=== PATIENT | female | born 1950 | race Caucasian/White ===

== ENCOUNTER 2017-01-22 10:27 | Inpatient (IN) | payer OTHER, MEDICARE ==
--- NOTE | 2017-01-22 10:38 | PDOC ---
History of Present Illness <Ana Carreno - Last Filed: 01/22/17 10:48> <Ramonita Thorpe - Last Filed: 01/22/17 11:01> - General Chief Complaint: CVA/TIA Stated Complaint: POSS STROKE Time Seen by Provider: 01/22/17 10:38 Past History <Ana Carreno - Last Filed: 01/22/17 10:48> - Past Medical History Hypercholesterolemia: Yes - Suicide/Smoking/Psychosocial Hx Smoking History: Never smoked Have you smoked in the past 12 months: No Hx Alcohol Use: No Drug/Substance Use Hx: No Substance Use Type: None <Ramonita Thorpe - Last Filed: 01/22/17 11:01> - Past Medical History Allergies/Adverse Reactions: Allergies Allergy/AdvReac Type Severity Reaction Status Date / Time No Known Allergies Allergy Verified 01/22/17 10:50 Home Medications: Ambulatory Orders Atorvastatin Ca [Lipitor] 10 mg PO HS 06/22/15 Alendronate Sodium [Binosto] 0 mg PO WEEKLY #0 06/24/15 Aspirin [Aspirin EC] 81 mg PO DAILY #1 tablet. 06/24/15 Gabapentin [Neurontin] 100 mg PO HS #30 capsule 06/25/15 NIH Stroke Scale - Last Known Well Date/Time & Onset Date Last Known Well: 01/22/17 Time Last Known Well: 09:00 <Ramonita Thorpe - Last Filed: 01/22/17 11:01> Critical Care Time/MDM Note - Medical Decision Making Note: 01/22/17 10:35-- Efrain Morton called in ED. 01/22/17 10:38-- Dr. Brownlee consulted. 01/22/17 10:48 --Dr. Pricila light (analytical consultant for Chris Martinez, Pt's neurologist) and patient's case was discussed. <Ana Carreno - Last Filed: 01/22/17 10:48>
[2017-01-22 10:50] VITALS: BMI 27.3
--- NOTE | 2017-01-22 11:02 | PDOC ---
Attending Attestation - Resident Resident Name: Vashti Chester - ED Attending Attestation I have performed the following: I have examined & evaluated the patient, The case was reviewed & discussed with the resident, I agree w/resident's findings & plan, Exceptions are as noted - HPI HPI: 01/22/17 11:19 see other note - Physicial Exam PE: 01/22/17 11:19 see other note - Medical Decision Making 01/22/17 11:02 I, Dr. Ramonita Thorpe, DO, attest that this document has been prepared under my direction and personally reviewed by me in its entirety. I further attest, that it accurately reflects all work, treatment, procedures and medical decision -making performed by me. 01/22/17 11:12 a/p: 66yo female with confusion, weakness coming from eye doctor -concern for CVA vs TIA -labs, head ct, ekg, cxr, ua -discussed case with DR. Brownlee who recommends also ordering carotid dopplers -will discuss with DR. Martinez (pts neurologist) -will need admission -onset of 9am, but no localizing symptoms other than slurred speech and confusion. b/l arm and leg weakness. no sensory changes. 01/22/17 11:18 Heart Score/ECG Review - ECG Intrepretation Comment:: 01/22/17 11:09 sinus at 63, nl axis, nl interval, no acute st/t wave findings NIH Stroke Scale - Last Known Well Date/Time & Onset Date Last Known Well: 01/22/17 Time Last Known Well: 09:00 - Initial Evaluation Level of consciousness: Alert Ask patient the month and their age: Answers both correctly Ask patient to open & close eyes; make fist and let go: Obeys both correctly Best gaze (horizontal eye movement): Normal Visual field testing: No visual field loss Facial paresis (Show teeth/raise eyebrows/close eyes tight): Normal symmetrical movement Motor Function: Left Arm: Some effort against gravity Motor Function: Right Arm: Some effort against gravity Motor Function: Left Leg: Some effort against gravity Motor Function: Right Leg: Some effort against gravity Limb Ataxia: No ataxia Sensory(Use pinprick test arms,legs,trunk,face/side to side): Normal Best language (Describe picture, name items, read sentences): Mild to moderate aphasia Dysarthria (read several words): Mild to moderate slurring of words Extinction and Inattention: No abnormality - Total Score NIH Stroke Scale Score: 10 tPA Exclusion Checklist 0-3hr - Time Elapsed Date last known well: 01/22/17 Time last known well: 09:00 Elaspsed time: Day(s) and 2 Hour(s) and 18 Minutes - Thrombolytic Therapy Candidate Is the patient eligible for Thrombolytic Therapy?: Yes - Exclusion Criteria 0-3hr SBP greater than 185 or DBP greater than 110mmHg despite tx: No Recent IC/spinal surgery,head trauma or stroke w/in last 3mo: No Hx of previous IC hemorrhage, IC neoplasm, AVM or aneurysm: No Active internal bleeding: No Blding diathesis(low plt ct, inc PTT,INR>1.7 or use of NOAC): No Symptoms suggest subarachnoid hemorrhage: No CT demonstrates multilobar infarct(>1/3 cerebral hemiphere): No Arterial puncture at noncompressible site in previous 7 days: No Blood glucose concentration less than 50mg/dL (2.7mmol/L): No - Relative Exclusion Criteria 0-3h Life expectancy <1yr/severe co-morbid illness/TAB BUILDER on admit: No : No Patient/family refused: No Rapid improvement: No Stroke severity too mild: No Recent acute GA (w/in previous 3 months): No Seizure at onset with postictal residual neuro impairments: No Major surgery or serious trauma w/in previous 14 days: No Recent GI or hemorrhage (w/in previous 21 days): No - Ineligibility reason(s) Reasons No tPA given: See reason(s) noted above (no localizing weakness to suggest cva, b/l UE and LE weakness, hx of seizures in the past and had multiple TIAs in the past- per outpt neurologist more concern for seizure activity than CVA)
[2017-01-22] MEDS: SODIUM CHLORIDE 1,000 ML IV SCH (11:05)
[2017-01-22 11:11] LABS: BASOPHIL 1.1 % (0-2.0); EOSINOPHIL 1.6 % (0-4.5); MCH 29.6 pg (25.7-33.7); MCHC 33.2 g/dl (32.0-36.0); MEAN CELL VOLUME 89.2 fl (80-96); MEAN PLT VOLUME 9.5 fl (7.5-11.1); NEUTROPHILS 66.3 % (42.8-82.8); PLATELET COUNT 189 K/MM3 (134-434); RDW 14.5 % (11.6-15.6); WHITE BLOOD COUNT 8.2 K/mm3 (4.0-10.0)
--- NOTE | 2017-01-22 11:24 | PDOC ---
History of Present Illness - General History Source: Patient Exam Limitations: No Limitations - History of Present Illness Initial Comments: 01/22/17 11:25 The patient is a 66 year old female, with a significant past medical history of Seizures, TIA, HLD who presents to the emergency department with sudden weakness , dizziness and confusion at 9AM this morning. 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 Daughter notes inability to walk, slurred speech and slight nausea. Patient was seen at nearby and was sent to the ED for further evaluation. Upon arrival, patient reports blurry vision with L occipital headache. Daughter notes this is her third episode within the past three days. These episodes last approximately 45 minutes with mild disorientation, mild body shakes and dizziness. Daughter reports today it has proggreisvely worsened. She also notes Note, patient had recent change in medication-- Donepezil to Keppra 500 mg BID. She denies chest pain, SOB, palpiations. She denies fever, chills, abdominal pain, vomit, diarrhea or constipation. She denies dysuria, frequency, urgency or hematuria. Patient denies sick contacts or recent travel. Allergies: NKA Past surgical history: Hysterectomy, Tonsillectomy Social history: None PCP: Dr. Concepción Mann Neurologist: Chris Martinez <Ana Carreno - Last Filed: 01/22/17 12:33> <Ramonita Thorpe - Last Filed: 01/22/17 12:44> - General Chief Complaint: CVA/TIA Stated Complaint: POSS STROKE Time Seen by Provider: 01/22/17 10:38 Past History <Ana Carreno - Last Filed: 01/22/17 12:33> - Past Medical History CVA: Yes (tia) COPD: No Hypercholesterolemia: Yes - Suicide/Smoking/Psychosocial Hx Smoking History: Never smoked Have you smoked in the past 12 months: No Information on smoking cessation initiated: No Hx Alcohol Use: No Drug/Substance Use Hx: No Substance Use Type: None <Ramonita Thorpe - Last Filed: 01/22/17 12:44> - Past Medical History Allergies/Adverse Reactions: Allergies Allergy/AdvReac Type Severity Reaction Status Date / Time No Known Allergies Allergy Verified 01/22/17 10:50 Home Medications: Ambulatory Orders Atorvastatin Ca [Lipitor] 10 mg PO HS 06/22/15 Aspirin [Aspirin EC] 81 mg PO DAILY #1 tablet. 06/24/15 Levetiracetam [Keppra -] 500 mg PO BID 01/22/17 Review of Systems - Review of Systems Able to Perform ROS?: Yes Comments:: 01/22/17 11:25 GENERAL/CONSTITUTIONAL: No fever or chills. +weakness. HEAD, EYES, EARS, NOSE AND THROAT: +blurry vision. No ear pain or discharge. No sore throat. GASTROINTESTINAL: No nausea, vomiting, diarrhea or constipation. GENITOURINARY: No dysuria, frequency, or change in urination. CARDIOVASCULAR: No chest pain or shortness of breath. RESPIRATORY: No cough, wheezing, or hemoptysis. MUSCULOSKELETAL: No joint or muscle swelling or pain. No neck or back pain. SKIN: No rash NEUROLOGIC: No headache, vertigo, loss of consciousness, or change in strength/ sensation. ENDOCRINE: No increased thirst. No abnormal weight change. HEMATOLOGIC/LYMPHATIC: No anemia, easy bleeding, or history of blood clots. ALLERGIC/IMMUNOLOGIC: No hives or skin allergy. <Ana Carreon - Last Filed: 01/22/17 12:33> *Physical Exam - Vital Signs Last Vital Signs Temp Pulse Resp BP Pulse Ox 97.6 F 62 18 145/103 100 01/22/17 10:27 01/22/17 10:27 01/22/17 10:27 01/22/17 10:27 01/22/17 10:27 - Physical Exam Comments: 01/22/17 11:25 GENERAL: Awake, alert, and fully oriented, in no acute distress. HEAD: No signs of trauma EYES: PERRLA, EOMI, sclera anicteric, conjunctiva clear ENT: Auricles normal inspection, hearing grossly normal, nares patent, oropharynx clear without exudates. Moist mucosa NECK: Normal ROM, supple, no lymphadenopathy, JVD, or masses LUNGS: Breath sounds equal, clear to auscultation bilaterally. No wheezes, and no crackles HEART: Regular rate and rhythm, normal S1 and S2, no murmurs, rubs or gallops ABDOMEN: Soft, nontender, normoactive bowel sounds. No guarding, no rebound. No masses EXTREMITIES: Normal range of motion, no edema. No clubbing or cyanosis. No cords, erythema, or tenderness. +generalized weakness in all extremities. NEUROLOGICAL: Cranial nerves II through XII grossly intact. +Mild to moderate aphasia. +Mild to mod slurred speech. +Stroke scale 10 with no localizing symptoms. +Bilateral upper extremity and lower extremity weakness. SKIN: Warm, Dry, normal turgor, no rashes or lesions noted. 01/22/17 11:26 Documentation prepared by Ana Carreno, acting as medical coding manager for Ramonita Thorpe DO, MD/. <Ana Carreno - Last Filed: 01/22/17 12:33> - Vital Signs Last Vital Signs Temp Pulse Resp BP Pulse Ox 97.6 F 62 18 145/103 100 01/22/17 10:27 01/22/17 10:27 01/22/17 10:27 01/22/17 10:27 01/22/17 10:27 <Ramonita Thorpe - Last Filed: 01/22/17 12:44> Critical Care Time/MDM Note Total Critical Care Time: 30 Critical Care Statement: The care of this patient involved high complexity decision making to prevent further life threatening deterioration of the patient 's condition and/or to evaluate & treat vital organ system(s) failure or risk of failure. - Medical Decision Making Note: 01/22/17 12:[address] Chris Martinez's office Note from last visit with Dr. Chris Martinez on 01/17/2017: " Problem #1: ? SEIZURE, SINLGE (ICD-780.39) (ICD 10- R56.9) Pt had a clearly observed and described (Nazanin) seizure. This is at least the third in the last year and a half. At this point I am recommending we start anticonvulsants. I have sent in a script for Keppra 500 mg BID and we will fu in two more months. No real change on aricept so we are going to stop it. Her updated medication list for this problem includes Keppra 500mg tabs, BID. " Documentation prepared by Ana Carreno, acting as medical coding manager for Ramonita Thorpe DO, MD/. <Ana Carreno - Last Filed: 01/22/17 12:33> - Medical Decision Making Note: 01/22/17 11:19 01/22/17 11:12 a/p: 66yo female with confusion, weakness coming from eye doctor -concern for CVA vs TIA -labs, head ct, ekg, cxr, ua -discussed case with DR. Brownlee who recommends also ordering carotid dopplers -will discuss with DR. Martinez (pts neurologist) -will need admission -onset of 9am, but no localizing symptoms other than slurred speech and confusion. b/l arm and leg weakness. no sensory changes. case discussed with Dr. Vaughan- states per Dr. Martinez's last note, pt has hx of seizures instead of tia. Has had negative neuro workup for cva and tia in the past. started on keppra on 01/17 and stopped donazepil then for seizure activity - concerned today's activity was seizure activity and not tia/cva given no localizing symptoms pt with b/l arm and leg weakness. has slurred speech, but no sensory changes. has mild confusion - has happened with prior seizures in the past. per the daughter, her mother has had tia episodes exactly the same as today - get dizzy, generally weak and needs support in the past. has had eye fluttering in the past with symptoms. has been shaking in the past and was shaking walking down the [place] today. no loss of bowel or bladder control. no tongue biting. symptoms today similar to prior tia episodes - has had 45 min of similar symptoms the last 4 mornings where the patient acted this way without loc and resolved in 45 min 01/22/17 12:[address] Brownlee who recommends increasing keppra dose to 750mg BID and giving an extra 500mg today. also to send Keppra level today. 01/22/17 12:28 01/22/17 12:[address] Mistry who accepts pt to service. Family and patient updated on results. willing to stay for further eval. 01/22/17 12:44 I, Dr. Ramonita Thorpe, DO, attest that this document has been prepared under my direction and personally reviewed by me in its entirety. I further attest, that it accurately reflects all work, treatment, procedures and medical decision -making performed by me. <Ramonita Thorpe - Last Filed: 01/22/17 12:44> Discharge Disposition <Ana Carreno - Last Filed: 01/22/17 12:33> - Discharge Dispostion Admit: Yes <Ramonita Thorpe - Last Filed: 01/22/17 12:44> - Diagnosis Altered mental status, unspecified, Weakness - Discharge Dispostion Condition at time of disposition: Fair - Referrals Referrals: Concepción Mann MD [Primary Care Provider] -
[2017-01-22 11:29] LABS: INR 0.93 (0.82-1.09); PROTHROMBIN TIME (PATIENT) 10.5 SEC (9.98-11.88)
[2017-01-22 11:32] LABS: ACTIVATED PTT 29.9 SECONDS (26.9-34.4)
[2017-01-22 11:41] LABS: ANION GAP 13 (8-16); BILIRUBIN,TOTAL 0.8 mg/dL (0.2-1.0); CHOLESTEROL 212 mg/dL (50-200); CO2 20 mmol/L (21-32); CREATININE 0.8 mg/dL (0.55-1.02); GLUCOSE,RANDOM 78 mg/dL (74-106); SGOT/AST 21 U/L (15-37); SGPT/ALT 24 U/L (12-78); TOT PROT 7.3 g/dl (6.4-8.2)
[2017-01-22 11:42] LABS: ALK PHOS 84 U/L (45-117); CPK 60 IU/L (26-192); TROPONIN I < 0.02 ng/ml (0.00-0.05)
[2017-01-22] MEDS ORDERED: levETIRAcetam 500 MG/5 ML INJECTION VIAL IVPB ONE ×2 (12:15→13:08)
[2017-01-22] MEDS ORDERED: SODIUM CHLORIDE 0.9% 1000 ML INFUS.BAG IV ONE (12:15)
[2017-01-22 13:27] LABS: URINE APPEARANCE CLEAR; URINE BILIRUBIN NEGATIVE (NEGATIVE); URINE BLOOD 1+ (NEGATIVE); URINE COLOR STRAW; URINE GLUCOSE (UA) NEGATIVE (NEGATIVE); URINE KETONE 1+ (NEGATIVE); URINE NITRITE NEGATIVE (NEGATIVE); URINE PROTEIN NEGATIVE (NEGATIVE); URINE UROBILINOGEN NEGATIVE mg/dL (0.2-1.0)
[2017-01-22 13:35] LABS: URINE MUCUS RARE
--- NOTE | 2017-01-22 17:09 | HP ---
Admitting History and Physical - Primary Care Physician PCP: Jesus Mistyr - Admission History of Present Illness: 66 year old female, with a significant past medical history of Seizures, TIA, HLD who presents to the emergency department with sudden weakness, dizziness and confusion at 9AM this morning. Patient is accompanied by daughter who states the patient was at the [employer] office when she suddenly felt dizzy and was unable to walk. Daughter notes inability to walk, slurred speech and slight nausea. Patient was seen at nearby and was sent to the ED for further evaluation. Upon arrival, patient reports blurry vision with L occipital headache. Daughter notes this is her third episode within the past three days. These episodes last approximately 45 minutes with mild disorientation, mild body shakes and dizziness. Daughter reports today it has proggreisvely worsened. She also notes Note, patient had recent change in medication-- Donepezil to Keppra 500 mg BID. - Past Medical History LOAD OUT PERSON: Yes: Seizure, TIA Cardiovascular: Yes: Hyperlipdemia - Past Surgical History Past Surgical History: Yes: , Tonsillectomy - Smoking History Smoking history: Never smoked Have you smoked in the past 12 months: No - Alcohol/Substance Use Hx Alcohol Use: No History of Substance Use: reports: None - Social History ADL: Independent History of Recent Travel: No Home Medications - Allergies Allergies/Adverse Reactions: Allergies Allergy/AdvReac Type Severity Reaction Status Date / Time No Known Allergies Allergy Verified 01/22/17 10:50 - Home Medications Home Medications: Ambulatory Orders Atorvastatin Ca [Lipitor] 10 mg PO HS 06/22/15 Aspirin [Aspirin EC] 81 mg PO DAILY #1 tablet. 06/24/15 Levetiracetam [Keppra -] 500 mg PO BID 01/22/17 Levofloxacin [Levaquin] 500 mg PO DAILY #7 tablet 01/23/17 Physical Examination Vital Signs: Vital Signs Temperature 98.2 F 01/22/17 15:00 Pulse Rate 64 01/22/17 15:00 Respiratory Rate 18 01/22/17 15:00 Blood Pressure 124/72 01/22/17 15:00 O2 Sat by Pulse Oximetry (%) 100 01/22/17 14:09 Constitutional: Yes: No Distress HENT: Yes: Atraumatic Neck: Yes: Supple Cardiovascular: Yes: Regular Rate and Rhythm Respiratory: Yes: CTA Bilaterally Gastrointestinal: Yes: Normal Bowel Sounds Extremities: Yes: WNL Edema: No Peripheral Pulses WNL: Yes Neurological: Yes: Alert, Oriented ...Motor Strength: WNL Problem List - Problems (1) HLD (hyperlipidemia) Assessment/Plan: on meds Code(s): E78.5 - HYPERLIPIDEMIA, UNSPECIFIED (2) Tingling of left arm and left side of face Assessment/Plan: resolved Code(s): R20.2 - PARESTHESIA OF SKIN (3) UTI (urinary tract infection) Assessment/Plan: iv abx cx need to de drawn Code(s): N39.0 - URINARY TRACT INFECTION, SITE NOT SPECIFIED Assessment/Plan Laboratory Tests 01/22/17 01/22/17 01/22/17 10:30 11:04 11:04 WBC 8.2 RBC 5.47 H Hgb 16.2 H D Hct 48.8 H MCV 89.2 MCH 29.6 MCHC 33.2 RDW 14.5 Plt Count 189 MPV 9.5 Neutrophils % 66.3 Lymphocytes % 25.7 Monocytes % 5.3 Eosinophils % 1.6 Basophils % 1.1 PT with INR 10.50 INR 0.93 PTT (Actin FS) 29.9 Sodium Potassium Chloride Carbon Dioxide Anion Gap BUN Creatinine Creat Clearance w eGFR POC Glucometer [id number] Random Glucose Calcium Total Bilirubin AST ALT Alkaline Phosphatase Creatine Kinase Troponin I Total Protein Albumin Triglycerides Cholesterol Total LDL Cholesterol HDL Cholesterol Urine Color Urine Appearance Urine pH Ur Specific [place] Urine Protein Urine Glucose (UA) Urine Ketones Urine Blood Urine Nitrite Urine Bilirubin Urine Urobilinogen Urine RBC Urine WBC Ur Epithelial Cells Urine Mucus Blood Type Antibody Screen 01/22/17 01/22/17 01/22/17 11:04 11:04 11:04 WBC RBC Hgb Hct MCV MCH MCHC RDW Plt Count MPV Neutrophils % Lymphocytes % Monocytes % Eosinophils % Basophils % PT with INR INR PTT (Actin FS) Sodium 139 Potassium 3.9 Chloride 106 Carbon Dioxide 20 L D Anion Gap 13 BUN 15 D Creatinine 0.8 Creat Clearance w eGFR > 60 POC Glucometer Random Glucose 78 Calcium 10.0 Total Bilirubin 0.8 D AST 21 ALT 24 D Alkaline Phosphatase 84 D Creatine Kinase 60 Troponin I < 0.02 Total Protein 7.3 Albumin 4.0 Triglycerides 153 Cholesterol 212 H Total LDL Cholesterol 112 H HDL Cholesterol 75 H Urine Color Straw Urine Appearance Clear Urine pH 6.0 Ur Specific [place] 1.006 Urine Protein Negative Urine Glucose (UA) Negative Urine Ketones 1+ H Urine Blood 1+ H Urine Nitrite Negative Urine Bilirubin Negative Urine Urobilinogen Negative Urine RBC 2-5 Urine WBC 10-20 Ur Epithelial Cells Rare Urine Mucus Rare Blood Type O POSITIVE Antibody Screen Negative Active Medications Generic Name Dose Route Start Last Admin Trade Name Freq PRN Reason Stop Dose Admin Acetaminophen 650 mg 01/23/17 15:57 01/23/17 16:02 Tylenol - PO 650 mg Q6H PRN Administration FEVER OR PAIN Aspirin 81 mg 01/23/17 10:00 01/23/17 10:36 Ecotrin - PO 81 mg DAILY PRO Administration Atorvastatin Calcium 10 mg 01/22/17 22:00 01/23/17 21:45 Lipitor - PO 10 mg HS PRO Administration Levofloxacin 100 mls @ 100 mls/hr 01/22/17 21:45 01/24/17 10:07 Levaquin 500 Mg Premixed Ivpb - IVPB 100 mls/hr DAILY PRO Administration Levetiracetam 500 mg 01/22/17 22:00 01/23/17 21:45 Keppra - PO 500 mg BID PRO Administration Thiamine HCl 200 mg 01/22/17 22:00 01/24/17 14:41 Vitamin B1 Injection - IVPB 01/25/17 22:01 200 mg TID PRO Administration
--- NOTE | 2017-01-22 21:35 | CONSULT ---
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 Lives with her daughter and her family. Apparently Pt has a history of cognitive decline and notes, "Oh, yes, the memory is a big problem." She is has been followed by Dr. Chris Martinez [place]," and until recently was maintained on Donepezil. Recently she was switched to keppra, 500 BID for suspicion of seizure and Donepezil was D/C'ed as "it was ineffective, anyway." Now admitted after 3 days of recurrent complaints of dizziness and unsteadiness " lasting approx 45 mins and today occurring in [employer] Supervisor's office. CT of head (reviewed): Mild diffuse atrophy. Carotid duplex dopplers: Unremarkable Pt also had MRI of brain in June, here, also revealing moderate, diffuse atrophy without focal changes. Admission labs sig for Urine with 20 WBC's. AIYANA: Neck supple. No bruits. Cor reg. NEURO: Awake, alert, confused. Rapid, fluent speech. Follows most commands. + Glabellar, shout. Hospital. Cannot recall [facility] after 1 min or that I am a neurologist. Fall, but not month, year, or weekday. Recalls Trump but 0 of 3 objects at 3 mins. CN: II-XII: Normal Motor: No drift or tremor. No cogwheeling. Normal strength and reflexes. Downgoing toes. Coord: No FTN dystaxia Sensory normal Gait: Shuffling, unsteady. May a petit pas. IMP: Moderately severe, B/L cerebral dysfunction (OMS, Chronic features) No focality to suggest CVA/TIA Subacute worsening due to toxic-metabolic encephalopathy (UTI). No obvious seizures but cannot exclude. SUGGEST: Check B12, TSH, RPR Culture urine and Rx if indicated. EEG. Continue levetiracetam 500 BID for now. Thank you very much, Brad Brownlee MD
[2017-01-22 22:07] LABS: URINE LEUK ESTERASE 1+ (NEGATIVE)
[2017-01-22] MEDS: ATORVASTATIN CA 10 MG TABLET (FP) PO SCH (22:47)
[2017-01-22] MEDS: levETIRAcetam 500 MG TABLET (FP) PO SCH (22:47)
[2017-01-22] MEDS: LEVOFLOXACIN 500 MG IVPB 100 ML IVPB SCH (22:47)
[2017-01-22] MEDS: THIAMINE HCL 200 MG/2 ML VIAL IVPB SCH (22:48)
[2017-01-23] MEDS: THIAMINE HCL 200 MG/2 ML VIAL IVPB SCH ×3 (05:19→21:45)
--- NOTE | 2017-01-23 07:31 | EKG ---
Test Reason : Blood Pressure : / mmHG Vent. Rate : 063 BPM Atrial Rate : 063 BPM P-R Int : 136 ms QRS Dur : 068 ms QT Int : 426 ms P-R-T Axes : 034 061 053 degrees QTc Int : 435 ms NORMAL SINUS RHYTHM NORMAL ECG WHEN COMPARED WITH ECG OF 25-JUN-2015 13:17, T WAVE VARIATION Confirmed by GURVINDER SUMMERS MD ([id number]) on 01/23/2017 7:31:13 AM Referred By: Confirmed By:GURVINDER SUMMERS MD
[2017-01-23 07:34] LABS: BASOPHIL 1.3 % (0-2.0); EOSINOPHIL 3.5 % (0-4.5); MCH 29.9 pg (25.7-33.7); MEAN CELL VOLUME 87.7 fl (80-96); MEAN PLT VOLUME 9.9 fl (7.5-11.1); NEUTROPHILS 57.3 % (42.8-82.8); PLATELET COUNT 169 K/MM3 (134-434); RDW 14.4 % (11.6-15.6); WHITE BLOOD COUNT 6.2 K/mm3 (4.0-10.0)
[2017-01-23 08:11] LABS: ALBUMIN 3.3 g/dl (3.4-5.0); BILIRUBIN,TOTAL 0.6 mg/dL (0.2-1.0); CALCIUM 8.5 mg/dL (8.5-10.1); CO2 21 mmol/L (21-32); CREATININE 0.7 mg/dL (0.55-1.02); GLUCOSE,RANDOM 85 mg/dL (74-106); SGOT/AST 14 U/L (15-37); SGPT/ALT 23 U/L (12-78); TOT PROT 6.2 g/dl (6.4-8.2)
[2017-01-23 08:13] LABS: ANION GAP 10 (8-16)
[2017-01-23 08:19] LABS: ALK PHOS 80 U/L (45-117); THYROID STIMULATING HORMONE 3.74 uIU/ml (0.358-3.74)
[2017-01-23] MEDS: levETIRAcetam 500 MG TABLET (FP) PO SCH ×2 (10:36→21:45)
[2017-01-23] MEDS: LEVOFLOXACIN 500 MG IVPB 100 ML IVPB SCH (10:36)
[2017-01-23] MEDS: ASPIRIN COATED 81 MG TABLET.EC PO SCH (10:36)
[2017-01-23] MEDS: SODIUM CHLORIDE 1,000 ML IV SCH (10:45)
--- NOTE | 2017-01-23 11:11 | CONSULT ---
Admitting History and Physical - Primary Care Physician PCP: Jesus Mistry - Admission History of Present Illness: 66 year old female, with a significant past medical history of Seizures, TIA, HLD who presents to the emergency department with sudden weakness, dizziness and confusion. (+) UTI. Neuro IMP: Moderately severe, B/L cerebral dysfunction (OMS, Chronic features) No focality to suggest CVA/TIA Subacute worsening due to toxic-metabolic encephalopathy (UTI). Limitations to Obtaining History: Clinical Condition - Past Medical History SKIN DIVER: Yes: Seizure Cardiovascular: Yes: Hyperlipdemia - Past Surgical History Past Surgical History: Yes: , Tonsillectomy - Smoking History Smoking history: Never smoked Have you smoked in the past 12 months: No - Alcohol/Substance Use Hx Alcohol Use: No History of Substance Use: reports: None - Social History ADL: Independent History of Recent Travel: No History - Admission Reason For Visit: WEAKNESS - Diagnostics X-ray: Report Reviewed CT Scan: Report Reviewed - General Mental Status: Awake and Alert, Able to Follow Commands, Anxious, Forgetful, Confused Attention: Distractible, Mild Impairment - Hearing Hearing: Normal Hearing Aide: No Speech Evaluation - Communication Primary Language: BELARUSIAN Oral Expression Ability: Yes: Mild Impairment - Speech Production Able to Make Needs Known: Yes: WNL Intelligibility: Yes: WNL - Speech Characteristics Voice Loudness: Normal Voice Pitch: Yes: Normal Voice Phonatory-based Quality: Yes: Normal Speech Pattern: Impaired (Speaks rapidly, groping for words, tangential, impaired insight and memory.) Speech Clarity: < 100% Nasal Resonance: Normal Articulation: Yes: Precise Rate of Speech: Too Fast - Language/Auditory Comprehension Follows: Yes: 1 Stage Simple Commands - Language/Verbal Expression Able to Respond to Simple Queries: Yes: WNL Able to Communicate Wants and Needs: Yes: WNL Functional Communication Status: Yes: Mildly Impaired - Swallow Evaluation/Bedside Assessment Current Nutritional Intake: NPO Oral Secretions: Yes: WFL Dentition: Yes: Adequate Facial Symmetry at Rest: Symmetrical Facial Symmetry on Retraction: Symmetrical Facial Movement: Involuntary (facial twitching while speaking) Against Resistance Opening: Normal Against Resistance Closing: Normal Pucker Lips: Normal Lingual Movement: Symmetric Lingual Speed of Movement: Normal Lingual Movement Strgth Against Opposition: Normal Lingual Movement Characteristics: Normal Velopharyngeal Movement: Normal Laryngeal Elevation: WFL Laryngeal Movement: Able to Palpate Bolus Size: WFL Labial Seal: WFL Chewing: WFL Oral Prep Time: WFL A-P Transit: WFL Timing of Swallow: WFL Coughing/Throat Clear: No Change in Voice: No Recommendations - Speech Evaluation, Impression/Plan Impression: Speaks rapidly, groping for words, tangential, impaired insight and memory. Swallowing intact. - Dysphagia Impressions/Plan Swallowing Skills: WFL Dysphagia Impressions: No Impairment *Silent aspiration: cannot be R/O at bedside - Recommendations Diet Consistency: Regular Medication Administration: Whole with water Liquids: Thin Liquids
[2017-01-23] MEDS: ACETAMINOPHEN 325 MG TABLET (FP) PO PRN (16:02)
--- NOTE | 2017-01-23 19:17 | PN ---
Progress Note, Physician History of Present Illness: feeling good - Current Medication List Current Medications: Active Medications Acetaminophen (Tylenol -) 650 mg PO Q6H PRN PRN Reason: FEVER OR PAIN Last Admin: 01/23/17 16:02 Dose: 650 mg Aspirin (Ecotrin -) 81 mg PO DAILY [facility] Last Admin: 01/23/17 10:36 Dose: 81 mg Atorvastatin Calcium (Lipitor -) 10 mg PO HS [facility] Last Admin: 01/22/17 22:47 Dose: 10 mg Sodium Chloride (Normal Saline -) 1,000 mls @ 42 mls/hr IV ASDIR [facility] Last Admin: 01/23/17 10:45 Dose: 42 mls/hr Levofloxacin (Levaquin 500 Mg Premixed Ivpb -) 100 mls @ 100 mls/hr IVPB DAILY [facility] Last Admin: 01/23/17 10:36 Dose: 100 mls/hr Levetiracetam (Keppra -) 500 mg PO BID [facility] Last Admin: 01/23/17 10:36 Dose: 500 mg Thiamine HCl (Vitamin B1 Injection -) 200 mg IVPB TID [facility] Stop: 01/25/17 22:01 Last Admin: 01/23/17 13:36 Dose: 200 mg - Objective Vital Signs: Vital Signs Temperature 99.1 F 01/23/17 14:00 Pulse Rate 116 H 01/23/17 14:00 Respiratory Rate 16 01/23/17 14:00 Blood Pressure 154/92 01/23/17 14:00 O2 Sat by Pulse Oximetry (%) 99 01/23/17 09:00 Constitutional: Yes: No Distress HENT: Yes: Atraumatic Neck: Yes: Supple Cardiovascular: Yes: Regular Rate and Rhythm Respiratory: Yes: CTA Bilaterally Gastrointestinal: Yes: Normal Bowel Sounds Extremities: Yes: WNL Neurological: Yes: Alert, Oriented Labs: CBC, BMP 01/23/17 05:10 01/23/17 05:10 INR, PTT INR 0.93 (0.82-1.09) 01/22/17 11:04 Problem List - Problems (1) HLD (hyperlipidemia) Assessment/Plan: on meds Code(s): E78.5 - HYPERLIPIDEMIA, UNSPECIFIED (2) Tingling of left arm and left side of face Assessment/Plan: resolved Code(s): R20.2 - PARESTHESIA OF SKIN (3) UTI (urinary tract infection) Assessment/Plan: iv abx cx need to de drawn Code(s): N39.0 - URINARY TRACT INFECTION, SITE NOT SPECIFIED
[2017-01-23] MEDS: ATORVASTATIN CA 10 MG TABLET (FP) PO SCH (21:45)
[2017-01-24] MEDS: THIAMINE HCL 200 MG/2 ML VIAL IVPB SCH ×3 (09:57→21:30)
[2017-01-24] MEDS: ASPIRIN COATED 81 MG TABLET.EC PO SCH (10:07)
[2017-01-24] MEDS: LEVOFLOXACIN 500 MG IVPB 100 ML IVPB SCH (10:07)
[2017-01-24] MEDS: levETIRAcetam 500 MG TABLET (FP) PO SCH ×2 (10:07→21:30)
--- NOTE | 2017-01-24 16:01 | PN ---
Progress Note, [employer] - Note Progress Note: Selected Entries 01/23/17 01/23/17 01/23/17 02:00 10:00 14:00 Breakfast Lunch Temperature 98.4 F 98.2 F 99.1 F 01/23/17 01/23/17 01/24/17 18:00 22:00 02:00 Breakfast Lunch Temperature 98.6 F 98.4 F 98.8 F 01/24/17 01/24/17 01/24/17 08:05 13:11 14:30 Breakfast 75% Lunch 75% Temperature 98.2 F 98.7 F Improving since yesterday but still rambling on , tangential with press for speech.
--- NOTE | 2017-01-24 17:36 | PN ---
Progress Note, Physician History of Present Illness: feeling good - Current Medication List Current Medications: Active Medications Acetaminophen (Tylenol -) 650 mg PO Q6H PRN PRN Reason: FEVER OR PAIN Last Admin: 01/23/17 16:02 Dose: 650 mg Aspirin (Ecotrin -) 81 mg PO DAILY [facility] Last Admin: 01/23/17 10:36 Dose: 81 mg Atorvastatin Calcium (Lipitor -) 10 mg PO HS [facility] Last Admin: 01/23/17 21:45 Dose: 10 mg Levofloxacin (Levaquin 500 Mg Premixed Ivpb -) 100 mls @ 100 mls/hr IVPB DAILY [facility] Last Admin: 01/24/17 10:07 Dose: 100 mls/hr Levetiracetam (Keppra -) 500 mg PO BID [facility] Last Admin: 01/23/17 21:45 Dose: 500 mg Thiamine HCl (Vitamin B1 Injection -) 200 mg IVPB TID [facility] Stop: 01/25/17 22:01 Last Admin: 01/24/17 14:41 Dose: 200 mg - Objective Vital Signs: Vital Signs Temperature 98.7 F 01/24/17 14:30 Pulse Rate 86 01/24/17 14:30 Respiratory Rate 18 01/24/17 14:30 Blood Pressure 132/72 01/24/17 14:30 O2 Sat by Pulse Oximetry (%) 99 01/24/17 09:00 Constitutional: Yes: No Distress HENT: Yes: Atraumatic Neck: Yes: Supple Cardiovascular: Yes: Regular Rate and Rhythm Respiratory: Yes: CTA Bilaterally Gastrointestinal: Yes: Normal Bowel Sounds Extremities: Yes: WNL Neurological: Yes: Alert, Oriented Labs: CBC, BMP 01/23/17 05:10 01/23/17 05:10 INR, PTT INR 0.93 (0.82-1.09) 01/22/17 11:04 Problem List - Problems (1) HLD (hyperlipidemia) Assessment/Plan: on meds Code(s): E78.5 - HYPERLIPIDEMIA, UNSPECIFIED (2) Tingling of left arm and left side of face Assessment/Plan: resolved Code(s): R20.2 - PARESTHESIA OF SKIN (3) UTI (urinary tract infection) Assessment/Plan: iv abx cx pending Code(s): N39.0 - URINARY TRACT INFECTION, SITE NOT SPECIFIED
--- NOTE | 2017-01-24 19:07 | PN ---
Progress Note (short form) - Note Progress Note: NEUROLOGY FOLLOW-UP: Events reviewed and discussed with Dr. Mistry. B12, TSH, RPR are normal or negative. On levaquin for UTI. On Keppra (500 BID) by Dr. Martinez for possible seizures. On parenteral thiamine. EXAM: Pt recalls me from "downstairs.". Ox "[facility]". "Dec or Jan...Jan" and 2016...2017. +Glabella Non-focal exam Stable gait. IMP: Moderate OMS. Probably early Alzheimers. Worsening from Toxic-metabolic encephalopathy dueto UTI. SUGGEST: Continue levaquin. Repeat UA as out patient to assure sterility. Continue keppra for now. Out patient neurology follow-up and EEG Thank you very much, Brad Brownlee MD
[2017-01-24] MEDS: ATORVASTATIN CA 10 MG TABLET (FP) PO SCH (21:29)
[2017-01-25] MEDS: THIAMINE HCL 200 MG/2 ML VIAL IVPB SCH ×3 (06:57→21:09)
[2017-01-25] MEDS: ASPIRIN COATED 81 MG TABLET.EC PO SCH (09:37)
[2017-01-25] MEDS: levETIRAcetam 500 MG TABLET (FP) PO SCH ×2 (09:37→21:09)
[2017-01-25] MEDS: LEVOFLOXACIN 500 MG IVPB 100 ML IVPB SCH (11:08)
[2017-01-25] MEDS: ACETAMINOPHEN 325 MG TABLET (FP) PO PRN (11:09)
--- NOTE | 2017-01-25 17:43 | DS ---
Physical Examination Vital Signs: Vital Signs Temperature 98.8 F 01/25/17 14:39 Pulse Rate 78 01/25/17 14:39 Respiratory Rate 20 01/25/17 14:39 Blood Pressure 128/81 01/25/17 14:39 O2 Sat by Pulse Oximetry (%) 98 01/25/17 09:00 Constitutional: Yes: No Distress HENT: Yes: Atraumatic Neck: Yes: Supple Cardiovascular: Yes: Regular Rate and Rhythm Respiratory: Yes: CTA Bilaterally Gastrointestinal: Yes: Normal Bowel Sounds Extremities: Yes: WNL Edema: No Neurological: Yes: Alert Labs: CBC, BMP 01/23/17 05:10 01/23/17 05:10 Discharge Summary Reason For Visit: WEAKNESS Current Active Problems Altered mental status, unspecified (Acute) UTI (urinary tract infection) (Acute) Weakness (Acute) Condition: Fair - Instructions Diet, Activity, Other Instructions: Follow up with primary care provider. Referrals: Brad Brownlee MD [Staff Physician] - Jesus Mistry MD [Staff Physician] - Concepción Mann MD [Primary Care Provider] - - Home Medications Comprehensive Discharge Medication List: Ambulatory Orders Atorvastatin Ca [Lipitor] 10 mg PO HS 06/22/15 Aspirin [Aspirin EC] 81 mg PO DAILY #1 tablet. 06/24/15 Levetiracetam [Keppra -] 500 mg PO BID 01/22/17
--- NOTE | 2017-01-25 17:51 | PN ---
Progress Note, Physician History of Present Illness: little dizzy when walking - Current Medication List Current Medications: Active Medications Acetaminophen (Tylenol -) 650 mg PO Q6H PRN PRN Reason: FEVER OR PAIN Last Admin: 01/25/17 11:09 Dose: 650 mg Aspirin (Ecotrin -) 81 mg PO DAILY [facility] Last Admin: 01/25/17 09:37 Dose: 81 mg Atorvastatin Calcium (Lipitor -) 10 mg PO HS [facility] Last Admin: 01/24/17 21:29 Dose: 10 mg Levetiracetam (Keppra -) 500 mg PO BID [facility] Last Admin: 01/25/17 09:37 Dose: 500 mg Thiamine HCl (Vitamin B1 Injection -) 200 mg IVPB TID [facility] Stop: 01/25/17 22:01 Last Admin: 01/25/17 14:57 Dose: 200 mg - Objective Vital Signs: Vital Signs Temperature 98.8 F 01/25/17 14:39 Pulse Rate 78 01/25/17 14:39 Respiratory Rate 20 01/25/17 14:39 Blood Pressure 128/81 01/25/17 14:39 O2 Sat by Pulse Oximetry (%) 98 01/25/17 09:00 Constitutional: Yes: No Distress HENT: Yes: Atraumatic Neck: Yes: Supple Cardiovascular: Yes: Regular Rate and Rhythm Respiratory: Yes: CTA Bilaterally Gastrointestinal: Yes: Normal Bowel Sounds Extremities: Yes: WNL Neurological: Yes: Alert, Oriented Labs: CBC, BMP 01/23/17 05:10 01/23/17 05:10 INR, PTT INR 0.93 (0.82-1.09) 01/22/17 11:04 Problem List - Problems (1) HLD (hyperlipidemia) Assessment/Plan: on meds Code(s): E78.5 - HYPERLIPIDEMIA, UNSPECIFIED (2) Tingling of left arm and left side of face Assessment/Plan: resolved Code(s): R20.2 - PARESTHESIA OF SKIN (3) UTI (urinary tract infection) Assessment/Plan: cx negative dc abx Code(s): N39.0 - URINARY TRACT INFECTION, SITE NOT SPECIFIED
[2017-01-25] MEDS: ATORVASTATIN CA 10 MG TABLET (FP) PO SCH (21:09)
--- NOTE | 2017-01-26 09:28 | HOSP ---
Physical Examination Vital Signs: Vital Signs Temperature 98.2 F 01/26/17 08:59 Pulse Rate 71 01/26/17 08:59 Respiratory Rate 18 01/26/17 08:59 Blood Pressure 128/79 01/26/17 08:59 O2 Sat by Pulse Oximetry (%) 97 01/25/17 20:40 Labs: CBC, BMP 01/23/17 05:10 01/23/17 05:10 Hospitalist Encounter Assessment: Asked by RN to evaluate patient for altered mental status Briefly, patient is a 66 year old female with a PMHx of seizure disorder TIA, HLD, early dementia who presented for sudden weakness and confusion associated with slurred speech. According to daughter, patient's mental status has been declining. Upon my arrival patient is crying and reports feeling dizzy. She denies any chest pain, palpitations, shortness of breath, headaches, abdominal pain, back pain. Physical Examination Patient was crying but was able to carry a full conversation. Full neurological exam was taken and patient had no focal deficits. Patient is awake, alert and oriented to person only. Was able to tell me her birthday and daughters name. Motor strength 5/5 throughout out Sensory Intact CN II-XII intact reflexes 2+ throughout Finger-finger nose is normal in both upper extremities with normal rapid alternating movements No aphasia Regular Rate and Rhythm with normal S1 and S2 Lungs CTA bilaterally with no wheezes, rhonchi, or crackles Abdomen soft, nontender, nondistended, (-) CVA tenderness No peripheral edema of bilateral extremities VITALS: BP: 123/78 HR: 78 BPM 02: 100% RA RR: 14 Glucose: 105 Assessment and Plan I suspect patient continues to have worsening dementia vs encephalitis secondary to UTI. Patient has not been treated for alzheimers in the past. However, will order a HEAD CT to rule out any acute stroke or hemorrhages. Will also order a urine culture to rule out UTI. Will contact neurology to re- evaluate patient Spoke to Primary care physician, Dr. Mistry, and discussed case. She agrees to head CT and for neuro to follow up. PCP will follow up with patient today and resume care. RN contacted Neurologist, Dr. Brownlee, who recommended to cancel head CT and order a brain MRI. CT was cancelled and MRI ordered, as per Neurology. Visit type - Emergency Visit Emergency Visit: Yes ED Registration Date: 01/22/17 Care time: The patient presented to the Emergency Department on the above date and was hospitalized for further evaluation of their emergent condition. - New Patient This patient is new to me today: Yes Date on this admission: 01/26/17 - Critical Care Critical Care patient: No
[2017-01-26] MEDS: levETIRAcetam 500 MG TABLET (FP) PO SCH ×2 (10:48→21:15)
[2017-01-26] MEDS: ASPIRIN COATED 81 MG TABLET.EC PO SCH (10:48)
--- NOTE | 2017-01-26 17:25 | PN ---
Progress Note, Physician History of Present Illness: feeling good - Current Medication List Current Medications: Active Medications Acetaminophen (Tylenol -) 650 mg PO Q6H PRN PRN Reason: FEVER OR PAIN Last Admin: 01/25/17 11:09 Dose: 650 mg Aspirin (Ecotrin -) 81 mg PO DAILY [facility] Last Admin: 01/26/17 10:48 Dose: 81 mg Atorvastatin Calcium (Lipitor -) 10 mg PO HS [facility] Last Admin: 01/25/17 21:09 Dose: 10 mg Levetiracetam (Keppra -) 500 mg PO BID [facility] Last Admin: 01/26/17 10:48 Dose: 500 mg - Objective Vital Signs: Vital Signs Temperature 98.0 F 01/26/17 14:51 Pulse Rate 79 01/26/17 14:51 Respiratory Rate 20 01/26/17 14:51 Blood Pressure 118/73 01/26/17 14:51 O2 Sat by Pulse Oximetry (%) 98 01/26/17 09:00 Constitutional: Yes: No Distress HENT: Yes: Atraumatic Neck: Yes: Supple Cardiovascular: Yes: Regular Rate and Rhythm Respiratory: Yes: CTA Bilaterally Gastrointestinal: Yes: Normal Bowel Sounds Extremities: Yes: WNL Neurological: Yes: Alert, Oriented Labs: CBC, BMP 01/23/17 05:10 01/23/17 05:10 INR, PTT INR 0.93 (0.82-1.09) 01/22/17 11:04 Problem List - Problems (1) HLD (hyperlipidemia) Assessment/Plan: on meds Code(s): E78.5 - HYPERLIPIDEMIA, UNSPECIFIED (2) Tingling of left arm and left side of face Assessment/Plan: resolved Code(s): R20.2 - PARESTHESIA OF SKIN (3) UTI (urinary tract infection) Assessment/Plan: cx negative dc abx Code(s): N39.0 - URINARY TRACT INFECTION, SITE NOT SPECIFIED Assessment/Plan MRI NEGATIVE DC TO SNF IN AM
--- NOTE | 2017-01-26 17:43 | PN ---
Progress Note (short form) - Note Progress Note: NEUROLOGY FOLLOW-UP: Events reviewed and discussed with RN. Patient examined with daughter, Nazanin, at bedside. Nazanin provides additional history of > 2 year of progressive cognitive decline and > 6mos of word finding difficulty. + FH of Alzheimer's disease in Pt's mother. Few months of blank staring suggested seizure diagnosis. Donepezil was only tried at 5 mg for 1 mo before it was D/C'ed. This AM Pt c/o dizziness and SOB. Now resolved. In fact, Nazanin finds her much improved from admission (after Rx of UTI)> MRI of brain (reviewed): Mild, diffuse atrophy Exam Unchanged. Sig for mod OMS. IMP: Alzheimer's disease, possibly familial. Worsening due to Toxic-Metabolic encephalopathy (improved). Possible complex paratial seizures. SUUGEST: Complete Rx for UTI. Resume donepezil 5 mg qd Continue Levetiracetam 500 BID Agree with transfer to [place] in the AM. Thank you very much, Brad Brownlee MD
--- NOTE | 2017-01-26 18:34 | DS ---
Physical Examination Vital Signs: Vital Signs Temperature 98.0 F 01/26/17 18:10 Pulse Rate 73 01/26/17 18:10 Respiratory Rate 18 01/26/17 18:10 Blood Pressure 134/84 01/26/17 18:10 O2 Sat by Pulse Oximetry (%) 98 01/26/17 09:00 Labs: CBC, BMP 01/23/17 05:10 01/23/17 05:10 Discharge Summary Reason For Visit: WEAKNESS Current Active Problems Altered mental status, unspecified (Acute) UTI (urinary tract infection) (Acute) Weakness (Acute) Condition: Fair - Instructions Diet, Activity, Other Instructions: Follow up with primary care provider. Referrals: Brad Brownlee MD [Staff Physician] - Jesus Mistry MD [Staff Physician] - Concepción Mann MD [Primary Care Provider] - - Home Medications Comprehensive Discharge Medication List: Ambulatory Orders Atorvastatin Ca [Lipitor] 10 mg PO HS 06/22/15 Aspirin [Aspirin EC] 81 mg PO DAILY #1 tablet. 06/24/15 Levetiracetam [Keppra -] 500 mg PO BID 01/22/17 Donepezil HCl [Aricept -] 5 mg PO DAILY tablet 01/26/17 [facility]
[2017-01-26] MEDS: ATORVASTATIN CA 10 MG TABLET (FP) PO SCH (21:15)
[2017-01-26] MEDS ORDERED: DONEPEZIL HCL 5 MG TABLET (FP) PO SCH (22:00)
[2017-01-27 09:03] VITALS: BP 119/74; PULSE 76; TEMP 97.8
[2017-01-27] MEDS ORDERED: PT OWN MED DRAWER 7, Y5N ONE (09:12)
[2017-01-27] MEDS: ASPIRIN COATED 81 MG TABLET.EC PO SCH (10:32)
[2017-01-27] MEDS: levETIRAcetam 500 MG TABLET (FP) PO SCH (10:33)
== END 2017-01-27 12:00 | DRG 689 ==
LOC: JER 10:27 → JERBED 12:44 → OBSVTOIN 12:44 → J4W 14:25 → J7W 01-24 17:00
PROVIDERS: ADMIT Internal Medicine; ATTEND Internal Medicine
DX: N39.0 Urinary tract infection, site not specified (principal); G93.41 Metabolic encephalopathy; G40.89 Other seizures; E78.5 Hyperlipidemia, unspecified; R20.2 Paresthesia of skin; G30.8 Other Alzheimer's disease; F02.80 Dementia in other diseases classified elsewhere, unspecified severity, without behavioral disturbance, psychotic disturbance, mood disturbance, and anxiety; Z86.73 Personal history of transient ischemic attack (TIA), and cerebral infarction without residual deficits
CPT/HCPCS: 36415; 70450-TC; 70551-TC; 71010-TC; 80053; 81003; 81015; 82465; 82550; 82607; 83718; 83721; 84443; 84478; 84484; 85025; 85610; 85730; 86593; 86850; 86900; 86901; 87086; 93005; 93010; 93880-TC; 97116-GP; 97161-GP; 99285-25